=== PATIENT | female | born 1935 | race Two or more races ===

== ENCOUNTER 2019-04-02 19:12 | Inpatient (IN) | payer MEDICARE, MEDICAID ==
[~2019-04-02] VITALS: Ht 157.5 cm; Wt 77.9 kg
[2019-04-02] MEDS ORDERED: CLON0.1T22 PO (19:43)
[2019-04-02] MEDS ORDERED: HYDR25TA6 PO (19:43)
[2019-04-02] MEDS ORDERED: ATOR-2 PO (19:43)
[2019-04-02] MEDS ORDERED: OXYB5TAB10 PO (19:43)
[2019-04-02] MEDS ORDERED: LISI-167 PO (19:43)
--- NOTE | 2019-04-02 19:43 | NUR ---
PT TOE D FOR CONFUSION AND WEAKNESS STARTING AT 1600 TODAY PER FAMILY. PT WAS UNABLE TO WALK AFTER USING RR. PER FAMILY, PTS BP WAS HIGH, 169/115. PT CONNECTED TO MONITORS. VSS. DR. SCHMIDT TO BS FOR ASSESSMENT. AWAITING ORDERS.
--- NOTE | 2019-04-02 19:59 | NUR ---
pt refusing straight cath. Dr. Rodriguez notified. per Dr. Rodriguez, collect bedpan sample.
[2019-04-02 20:09] LABS: BASOPHILS % (AUTO) 0 % (0-1); EOSINOPHILS # (AUTO) 0.09 x10^3/uL (0-0.4); EOSINOPHILS % (AUTO) 1 % (1-7); LYMPHOCYTES # (AUTO) 1.05 x10^3/uL (1-3.4); LYMPHOCYTES % (AUTO) 6 % (22-44); MD NO; MEAN CORPUSCULAR HGB CONC 33.3 g/dL (32.4-35.8); MEAN CORPUSCULAR VOLUME 87.1 fL (80-100); MEAN PLATELET VOLUME 7.9 fL (7.4-10.4); MONOCYTES % (AUTO) 3 % (2-9); NEUTROPHILS # (AUTO) 15.93 x10^3/uL (1.8-6.8); NEUTROPHILS % (AUTO) 91 % (42-75); PLATELET COUNT 325 x10^3/uL (130-400); RED BLOOD COUNT 5.28 x10^6/uL (3.82-5.3); RED CELL DISTRIBUTION WIDTH 14.2 % (9.6-15.2)
[2019-04-02 20:15] LABS: ALANINE AMINOTRANSFERASE 22 U/L (12-78); ALBUMIN 3.7 g/dL (3.4-5.0); ANION GAP 10 mmol/L (5-15); CALCIUM 9.4 mg/dL (8.5-10.1); CHLORIDE 93 mmol/L (98-107); CREATININE 0.84 mg/dL (0.55-1.02)
[2019-04-02 20:20] LABS: ALKALINE PHOSPHATASE 107 U/L (45-117); BILIRUBIN,TOTAL 0.8 mg/dL (0.2-1.0); TOTAL PROTEIN 7.8 g/dL (6.4-8.2); TROPONIN I < 0.015 ng/mL (0.000-0.045)
--- NOTE | 2019-04-02 20:48 | NUR ---
PT RESTING IN ROOM WITH FAMILY AT BS. VSS. PT UNABLE TO URINATE ON BEDPAN AT THIS TIME. NO NEEDS EXPRESSED. CALL LIGHT WITHIN REACH. AWAITING CT.
--- NOTE | 2019-04-02 21:12 | NUR ---
ALL RESULTS BACK AT THIS TIME. CHART UP FOR RECHECK.
--- NOTE | 2019-04-02 21:39 | NUR ---
PT RESTING IN ROOM WITH FAMILY AT BS. VSS. NO NEEDS EXPRESSED. CALL LIGHT WITHIN REACH. ADMIT ORDERS RECEIVED. AWAITING ROOM ASSIGNMENT.
[2019-04-02] MEDS: ATORVASTATIN 10 MG TABLET PO SCH (22:00)
[2019-04-02] MEDS ORDERED: MAGNESIUM SULFATE PMX 2GM/50ML 50 ML IV ONE (22:00)
[2019-04-02] MEDS ORDERED: CEFTRIAXONE PMX 1GM/50ML 50 ML IV SCH (22:00)
[2019-04-02] MEDS ORDERED: SODIUM CHLORIDE 0.9% 1,000ML IVBOLUS ONE (22:00)
--- NOTE | 2019-04-02 22:10 | NUR ---
report to felice mosley. pt ready for transport.
[2019-04-02] MEDS ORDERED: ONDANSETRON ODT 4 MG PO PRN (22:30)
[2019-04-02] MEDS ORDERED: POLYETHYLENE GLYCOL 17 GM PACKET PO PRN (22:30)
[2019-04-02] MEDS ORDERED: BISACODYL 10 MG SUPP PR PRN (22:30)
[2019-04-02 23:20] LABS: MICROSCOPIC NOT IND
[2019-04-02 23:30] LABS: CULTURE INDICATED? NO
[2019-04-02 23:30] LABS: HEMOGLOBIN A1C 6.9 % (4.2-6.3)
[2019-04-02] MEDS: HEPARIN 5,000 UNITS/ML, 1ML SQ SCH (23:33)
[2019-04-02] MEDS: LISINOPRIL 20 MG TABLET PO SCH (23:33)
[2019-04-03] MEDS: NS + 20MEQ KCL 1,000 ML IV SCH ×2 (00:33→14:44)
[2019-04-03] MEDS: CEFTRIAXONE PMX 1GM/50ML 50 ML IV SCH (00:33)
[2019-04-03 02:24] VITALS: BP 124/78
[2019-04-03 06:23] LABS: BASOPHILS # (AUTO) 0.08 x10^3/uL (0-0.1); BASOPHILS % (AUTO) 1 % (0-1); EOSINOPHILS % (AUTO) 1 % (1-7); LYMPHOCYTES # (AUTO) 2.48 x10^3/uL (1-3.4); LYMPHOCYTES % (AUTO) 20 % (22-44); MD NO; MEAN CORPUSCULAR HEMOGLOBIN 28.7 pg (27.0-34.8); MEAN CORPUSCULAR HGB CONC 33.7 g/dL (32.4-35.8); MEAN CORPUSCULAR VOLUME 85.3 fL (80-100); MEAN PLATELET VOLUME 8.4 fL (7.4-10.4); MONOCYTES # (AUTO) 0.93 x10^3/uL (0.2-0.8); MONOCYTES % (AUTO) 8 % (2-9); NEUTROPHILS # (AUTO) 8.87 x10^3/uL (1.8-6.8); NEUTROPHILS % (AUTO) 71 % (42-75); PLATELET COUNT 213 x10^3/uL (130-400); RED CELL DISTRIBUTION WIDTH 14.4 % (9.6-15.2)
[2019-04-03 06:33] LABS: ALBUMIN 3.1 g/dL (3.4-5.0); ANION GAP 8 mmol/L (5-15); CALCIUM 8.7 mg/dL (8.5-10.1); CHLORIDE 99 mmol/L (98-107); CREATININE 0.67 mg/dL (0.55-1.02)
[2019-04-03 06:37] LABS: ALANINE AMINOTRANSFERASE 18 U/L (12-78); ALKALINE PHOSPHATASE 92 U/L (45-117); BILIRUBIN,TOTAL 0.7 mg/dL (0.2-1.0); TOTAL PROTEIN 6.5 g/dL (6.4-8.2)
[2019-04-03 06:49] VITALS: BP 138/84
[2019-04-03] MEDS: HEPARIN 5,000 UNITS/ML, 1ML SQ SCH ×2 (10:02→16:52)
[2019-04-03] MEDS: OXYBUTYNIN CHLORIDE 5 MG TABLET PO SCH (10:03)
[2019-04-03] MEDS: SENNA/DOCUSATE TABLET PO SCH (10:03)
[2019-04-03] MEDS: HYDROCHLOROTHIAZIDE 25 MG TABLET PO SCH (10:03)
[2019-04-03] MEDS: POTASSIUM CHLORIDE 20 MEQ TAB.ER.PRT PO SCH (10:03)
[2019-04-03] MEDS: LISINOPRIL 20 MG TABLET PO SCH ×2 (10:03→20:00)
[2019-04-03 14:18] VITALS: BP 130/79
[2019-04-03 19:37] VITALS: BP 165/89
[2019-04-03] MEDS: ATORVASTATIN 10 MG TABLET PO SCH (19:59)
[2019-04-04] MEDS: HEPARIN 5,000 UNITS/ML, 1ML SQ SCH ×3 (00:08→16:59)
[2019-04-04] MEDS: CEFTRIAXONE PMX 1GM/50ML 50 ML IV SCH (00:08)
[2019-04-04] MEDS: ACETAMINOPHEN 325 MG TABLET PO PRN ×2 (01:04→08:03)
[2019-04-04 01:17] VITALS: BP 146/84
[2019-04-04] MEDS: POTASSIUM CHLORIDE 20 MEQ TAB.ER.PRT PO SCH (08:04)
[2019-04-04] MEDS: HYDROCHLOROTHIAZIDE 25 MG TABLET PO SCH (08:04)
[2019-04-04] MEDS: LISINOPRIL 20 MG TABLET PO SCH ×2 (08:05→20:29)
[2019-04-04] MEDS: SENNA/DOCUSATE TABLET PO SCH (08:06)
[2019-04-04] MEDS: OXYBUTYNIN CHLORIDE 5 MG TABLET PO SCH (08:14)
[2019-04-04 10:52] VITALS: BP 128/67
[2019-04-04 15:48] VITALS: BP 137/80
[2019-04-04 19:48] VITALS: BP 162/86
[2019-04-04] MEDS: ATORVASTATIN 10 MG TABLET PO SCH (20:29)
[2019-04-05] MEDS: CEFTRIAXONE PMX 1GM/50ML 50 ML IV SCH (00:16)
[2019-04-05] MEDS: HEPARIN 5,000 UNITS/ML, 1ML SQ SCH ×2 (00:17→08:16)
[2019-04-05 02:12] VITALS: BP 141/84
[2019-04-05 07:14] LABS: BASOPHILS # (AUTO) 0.03 x10^3/uL (0-0.1); BASOPHILS % (AUTO) 0 % (0-1); EOSINOPHILS # (AUTO) 0.07 x10^3/uL (0-0.4); EOSINOPHILS % (AUTO) 1 % (1-7); LYMPHOCYTES # (AUTO) 2.25 x10^3/uL (1-3.4); LYMPHOCYTES % (AUTO) 19 % (22-44); MD NO; MEAN CORPUSCULAR HEMOGLOBIN 28.8 pg (27.0-34.8); MEAN CORPUSCULAR HGB CONC 33.9 g/dL (32.4-35.8); MEAN PLATELET VOLUME 7.7 fL (7.4-10.4); MONOCYTES # (AUTO) 0.85 x10^3/uL (0.2-0.8); MONOCYTES % (AUTO) 7 % (2-9); NEUTROPHILS # (AUTO) 8.48 x10^3/uL (1.8-6.8); NEUTROPHILS % (AUTO) 73 % (42-75); PLATELET COUNT 302 x10^3/uL (130-400); RED BLOOD COUNT 5.05 x10^6/uL (3.82-5.3); RED CELL DISTRIBUTION WIDTH 14.6 % (9.6-15.2)
[2019-04-05 07:15] LABS: ANION GAP 5 mmol/L (5-15); CALCIUM 8.7 mg/dL (8.5-10.1); CHLORIDE 100 mmol/L (98-107); CREATININE 0.73 mg/dL (0.55-1.02)
[2019-04-05 08:03] VITALS: BP 145/85
[2019-04-05] MEDS: POTASSIUM CHLORIDE 20 MEQ TAB.ER.PRT PO SCH (08:15)
[2019-04-05] MEDS: LISINOPRIL 20 MG TABLET PO SCH (08:15)
[2019-04-05] MEDS: SENNA/DOCUSATE TABLET PO SCH (08:16)
[2019-04-05] MEDS: HYDROCHLOROTHIAZIDE 25 MG TABLET PO SCH (08:16)
[2019-04-05] MEDS: OXYBUTYNIN CHLORIDE 5 MG TABLET PO SCH (08:16)
[2019-04-05] MEDS: ACETAMINOPHEN 325 MG TABLET PO PRN (11:29)
[2019-04-05 13:13] VITALS: BP 115/77
[2019-04-05] MEDS ORDERED: POLY17PO5 PO (13:58)
[2019-04-05] MEDS ORDERED: CEFD300C37 PO (13:58)
[2019-04-05] MEDS ORDERED: LACT1TAB13 PO (13:58)
== END 2019-04-05 17:04 | disposition home or self-care (01) | DRG 871 ==
LOC: ED 21:45 → UNDOADMIN 21:54 → EDIP 21:54 → 3N 22:53 → DCLOUNGE 04-05 17:04
PROVIDERS: ADMIT Internal Medicine; ATTEND Internal Medicine
DX: A41.9 Sepsis, unspecified organism (principal); G93.41 Metabolic encephalopathy; E87.1 Hypo-osmolality and hyponatremia; N39.0 Urinary tract infection, site not specified; E11.65 Type 2 diabetes mellitus with hyperglycemia; E78.00 Pure hypercholesterolemia, unspecified; E78.5 Hyperlipidemia, unspecified; E83.42 Hypomagnesemia; E87.6 Hypokalemia; I10 Essential (primary) hypertension; I25.10 Atherosclerotic heart disease of native coronary artery without angina pectoris; I25.2 Old myocardial infarction; R32 Unspecified urinary incontinence; Z86.73 Personal history of transient ischemic attack (TIA), and cerebral infarction without residual deficits; Z87.891 Personal history of nicotine dependence
CPT/HCPCS: 36415; 70450; 71045; 80048; 80053; 81003; 83036; 83605; 83735; 84484; 85025; 87040; 93005; 99285; G0378; J0696; J1644; J3480; J3475; J7030

== ENCOUNTER 2020-01-10 17:33 | Emergency (ER) | payer MEDICARE, MEDICAID ==
[~2020-01-10] VITALS: Ht 165.1 cm; Wt 60.5 kg
[~2020-01-10 17:33] MED LIST: ATOR-2 PO; CARV12.52 PO; CEFD300C37 PO; CLON0.1T22 PO; FERR210T PO; HYDR25TA6 PO; LACT1TAB13 PO; LISI-167 PO; OMEP-110 PO; OXYB5TAB10 PO; POLY17PO5 PO
--- NOTE | 2020-01-10 17:56 | NUR ---
FIRST CONTACT WITH PT. "[facility] WENT TO [facility] BECAUSE SHES HAVING LOWER BACK PAIN AND SHE TENDS TO HAVE UTI'S. SHE WAS HERE 5 WEEKS AGO W/ BLOOD INFECTION FROM A UTI. AT [facility] THEY COULDN'T MAKE HER PEE SO THEY TOLD US TO BRING HER HERE". PT'S AOX4. RESPS EVEN AND UNLABORED. SAO TOMEAN SPEAKING.
--- NOTE | 2020-01-10 18:21 | NUR ---
PT WHEELED TO WITH PT'S SON. URINE CUP GIVEN, BUT PT WAS NOT ABLE TO PROVIDE URINE SAMPLE AT THIS TIME.
--- NOTE | 2020-01-10 18:55 | NUR ---
REPORT GIVEN TO SHREYA MUNIZ.
--- NOTE | 2020-01-10 19:05 | NUR ---
REPORT FROM CHINEDU MUNIZ. MINI CATH PLACED AND URINE SAMPLE OBTAINED. PT TOLERATED WELL. UA WALKED TO LAB. SON AT BEDSIDE. CALL LIGHT IN REACH
[2020-01-10 19:22] LABS: MICROSCOPIC INDICATED
[2020-01-10 19:36] VITALS: BP 149/62
--- NOTE | 2020-01-10 19:58 | NUR ---
Caregiver given discharge instructions and they have confirmed that they understand the instructions. Patient ambulatory with steady gait.
== END 2020-01-10 20:03 | disposition home or self-care (01) ==
LOC: ED 18:18
DX: N30.00 Acute cystitis without hematuria (principal); I10 Essential (primary) hypertension; I25.2 Old myocardial infarction; Z86.73 Personal history of transient ischemic attack (TIA), and cerebral infarction without residual deficits
CPT/HCPCS: 81001; 87077; 87086; 87186; 99283

== ENCOUNTER 2021-01-15 00:38 | Inpatient (IN) | payer MEDICARE, MEDICAID ==
[~2021-01-15] VITALS: Ht 157.5 cm; Wt 83.1 kg
--- NOTE | 2021-01-15 00:44 | NUR ---
PT BIB EMS FOR [facility]. PT CO LEFT HIP PAIN. LEG APPEARS TO SHORTENED. PULSES INTACT. PT LIBERIAN SPEAKING ONLY. 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 PT RESTING IN [place]. FAMILY ON THE WAY. BLANKETS PROVIDED
[2021-01-15] MEDS ORDERED: ONDANSETRON 2MG/ML, 2ML ONE ×2 (01:23→12:03)
[2021-01-15] MEDS ORDERED: MORPHINE SULFATE 4 MG/ML, 1ML ONE (01:24)
[2021-01-15] MEDS ORDERED: MORPHINE SULFATE 4 MG/ML, 1ML IVPush PRN (01:30)
[2021-01-15] MEDS ORDERED: ONDANSETRON 2MG/ML, 2ML IVPush ONE (01:30)
--- NOTE | 2021-01-15 01:44 | NUR ---
EDDIE ZULETA [phone]
[2021-01-15 01:51] LABS: BASOPHILS % (AUTO) 1 % (0-1); EOSINOPHILS % (AUTO) 0 % (1-7); LYMPHOCYTES % (AUTO) 13 % (22-44); MEAN CORPUSCULAR HEMOGLOBIN 25.7 pg (27.0-34.8); MEAN CORPUSCULAR HGB CONC 33.2 g/dL (32.4-35.8); MEAN PLATELET VOLUME 7.7 fL (7.4-10.4); MONOCYTES % (AUTO) 7 % (2-9); NEUTROPHILS % (AUTO) 79 % (42-75); PLATELET COUNT 290 x10^3/uL (130-400); RED BLOOD COUNT 4.73 x10^6/uL (3.82-5.3); RED CELL DISTRIBUTION WIDTH 15.9 % (9.6-15.2)
[2021-01-15 02:01] LABS: ALBUMIN 2.8 g/dL (3.4-5.0); ANION GAP 8 mmol/L (5-15); CALCIUM 9.1 mg/dL (8.5-10.1); CHLORIDE 100 mmol/L (98-107); CREATININE 0.89 mg/dL (0.55-1.02)
[2021-01-15 03:30] VITALS: BP 139/82
[2021-01-15] MEDS ORDERED: POLYETHYLENE GLYCOL 17 GM PACKET PO PRN (04:30)
[2021-01-15] MEDS ORDERED: LABETALOL 5MG/ML, 20ML IVPush PRN (04:30)
[2021-01-15] MEDS: KETOROLAC 30 MG/1 ML IV PRN ×2 (04:44→20:36)
[2021-01-15] MEDS: morphine SULFATE 10 MG/ML, 1ML IVPush PRN ×2 (04:45→23:14)
[2021-01-15] MEDS ORDERED: CHLORHEXIDINE 15 ML UDC ONE (08:51)
[2021-01-15 10:30] VITALS: BP 124/75
[2021-01-15] MEDS ORDERED: MEPERIDINE/PF 25MG/0.5ML IVPush PRN (10:30)
[2021-01-15] MEDS ORDERED: HYDROmorphone 1 MG/ML, 1ML INJ IVPush PRN (10:30)
[2021-01-15] MEDS ORDERED: ACETAMINOPHEN 325 MG TABLET PO PRN (10:30)
[2021-01-15] MEDS ORDERED: ONDANSETRON 2MG/ML, 2ML IVPush PRN (10:30)
[2021-01-15] MEDS ORDERED: HYDROcodone/APAP 7.5-325MG/15ML UDC PO PRN (10:30)
[2021-01-15] MEDS ORDERED: OXYcodone 5 MG/5 ML ORAL.SOL UDC PO PRN (10:30)
[2021-01-15] MEDS ORDERED: FENTANYL PF 100 MCG/2ML ONE ×2 (11:40→13:40)
[2021-01-15] MEDS ORDERED: NEOSTIGMINE 1 MG/ML, 10ML ONE (12:03)
[2021-01-15] MEDS ORDERED: SUCCINYLCHOLINE 20 MG/ML, 10ML ONE (12:03)
[2021-01-15] MEDS ORDERED: PROPOFOL 10 MG/ML, 20ML ONE (12:03)
[2021-01-15] MEDS ORDERED: GLYCOPYRROLATE 0.2MG/1ML, 5ML ONE (12:03)
[2021-01-15] MEDS ORDERED: ROCURONIUM 10 MG/ML,10ML ONE (12:03)
[2021-01-15] MEDS ORDERED: CEFAZOLIN 1,000 MG ONE (12:03)
[2021-01-15] MEDS ORDERED: DEXAMETHASONE 4 MG/ML, 1ML ONE (12:03)
[2021-01-15] MEDS ORDERED: PHENYLEPHRINE 10 MG/ML ONE (12:03)
[2021-01-15] MEDS: FENTANYL PF 100 MCG/2ML IV PRN ×2 (13:42→14:28)
[2021-01-15] MEDS: ONDANSETRON 2MG/ML, 2ML IVPush PRN (15:59)
[2021-01-15] MEDS ORDERED: SODIUM CHLORIDE 0.9% 1,000ML IVBOLUS ONE ×2 (16:30→20:30)
[2021-01-15 18:57] VITALS: BP 100/67
[2021-01-15 19:47] VITALS: BP 74/49
[2021-01-15] MEDS: MELATONIN 5 MG TABLET PO PRN (22:58)
[2021-01-15 23:11] VITALS: BP 97/62
[2021-01-16 00:26] VITALS: BP 85/57
[2021-01-16] MEDS: SODIUM CHLORIDE 0.9% 1,000 ML IV SCH ×4 (01:00→22:43)
[2021-01-16 01:24] LABS: BASOPHILS % (AUTO) 0 % (0-1); EOSINOPHILS % (AUTO) 0 % (1-7); LYMPHOCYTES % (AUTO) 6 % (22-44); MEAN CORPUSCULAR HEMOGLOBIN 25.7 pg (27.0-34.8); MEAN CORPUSCULAR HGB CONC 32.7 g/dL (32.4-35.8); MEAN PLATELET VOLUME 7.8 fL (7.4-10.4); MONOCYTES % (AUTO) 7 % (2-9); NEUTROPHILS % (AUTO) 86 % (42-75); PLATELET COUNT 240 x10^3/uL (130-400); RED BLOOD COUNT 3.14 x10^6/uL (3.82-5.3); RED CELL DISTRIBUTION WIDTH 15.5 % (9.6-15.2)
[2021-01-16 01:34] LABS: ANION GAP 8 mmol/L (5-15); CALCIUM 7.8 mg/dL (8.5-10.1); CHLORIDE 105 mmol/L (98-107); CREATININE 1.48 mg/dL (0.55-1.02)
[2021-01-16 01:53] LABS: TROPONIN I < 0.015 ng/mL (0.000-0.045)
[2021-01-16] MEDS ORDERED: ENOXAPARIN 40 MG/0.4 ML SQ SCH (09:00)
[2021-01-16 09:15] VITALS: BP 100/64
[2021-01-16] MEDS: morphine SULFATE 10 MG/ML, 1ML IVPush PRN ×2 (11:29→22:42)
[2021-01-16] MEDS: KETOROLAC 30 MG/1 ML IV PRN ×2 (15:08→21:53)
[2021-01-16] MEDS: ONDANSETRON 2MG/ML, 2ML IVPush PRN ×2 (15:08→21:27)
[2021-01-16 15:21] VITALS: BP 122/74
[2021-01-16 20:26] VITALS: BP 114/71
[2021-01-16] MEDS ORDERED: ATORVASTATIN 80 MG TABLET PO SCH (21:00)
[2021-01-16] MEDS: ATORVASTATIN 10 MG TABLET PO SCH (21:19)
[2021-01-17] VITALS (11 sets, daily range): BP systolic 106–139; BP diastolic 55–83
[2021-01-17] MEDS: KETOROLAC 30 MG/1 ML IV PRN ×2 (04:57→11:02)
[2021-01-17] MEDS: SODIUM CHLORIDE 0.9% 1,000 ML IV SCH ×3 (05:51→22:45)
[2021-01-17 06:08] LABS: BASOPHILS % (AUTO) 0 % (0-1); EOSINOPHILS % (AUTO) 0 % (1-7); LYMPHOCYTES % (AUTO) 15 % (22-44); MEAN CORPUSCULAR HEMOGLOBIN 26.7 pg (27.0-34.8); MEAN CORPUSCULAR HGB CONC 33.8 g/dL (32.4-35.8); MEAN PLATELET VOLUME 7.8 fL (7.4-10.4); MONOCYTES % (AUTO) 12 % (2-9); NEUTROPHILS % (AUTO) 73 % (42-75); PLATELET COUNT 203 x10^3/uL (130-400); RED BLOOD COUNT 2.34 x10^6/uL (3.82-5.3); RED CELL DISTRIBUTION WIDTH 15.5 % (9.6-15.2)
[2021-01-17 06:15] LABS: CALCIUM 7.6 mg/dL (8.5-10.1); CHLORIDE 112 mmol/L (98-107)
[2021-01-17 06:18] LABS: ANION GAP 6 mmol/L (5-15); CREATININE 1.16 mg/dL (0.55-1.02)
[2021-01-17] MEDS: ONDANSETRON 2MG/ML, 2ML IVPush PRN (10:15)
[2021-01-17] MEDS: morphine SULFATE 10 MG/ML, 1ML IVPush PRN (10:30)
[2021-01-17] MEDS: ENOXAPARIN 30 MG/0.3 ML SQ SCH (11:03)
[2021-01-17] MEDS ORDERED: OMEPRAZOLE 20 MG CAPSULE.DR ONE (11:47)
[2021-01-17] MEDS: OMEPRAZOLE 20 MG CAPSULE.DR PO SCH (11:48)
[2021-01-17] MEDS: CARVEDILOL 12.5 MG TABLET PO SCH (17:29)
[2021-01-17] MEDS: MELATONIN 5 MG TABLET PO PRN (20:45)
[2021-01-18 01:49] VITALS: BP 106/68
[2021-01-18 05:20] LABS: BASOPHILS % (AUTO) 1 % (0-1); EOSINOPHILS % (AUTO) 1 % (1-7); LYMPHOCYTES % (AUTO) 17 % (22-44); MEAN CORPUSCULAR HEMOGLOBIN 28.7 pg (27.0-34.8); MEAN CORPUSCULAR HGB CONC 34.5 g/dL (32.4-35.8); MEAN PLATELET VOLUME 8.3 fL (7.4-10.4); MONOCYTES % (AUTO) 10 % (2-9); NEUTROPHILS % (AUTO) 71 % (42-75); PLATELET COUNT 133 x10^3/uL (130-400); RED BLOOD COUNT 3.07 x10^6/uL (3.82-5.3); RED CELL DISTRIBUTION WIDTH 16.5 % (9.6-15.2)
[2021-01-18 05:31] LABS: ALBUMIN 1.7 g/dL (3.4-5.0); ANION GAP 5 mmol/L (5-15); CALCIUM 7.4 mg/dL (8.5-10.1); CHLORIDE 114 mmol/L (98-107)
[2021-01-18 05:35] LABS: ALANINE AMINOTRANSFERASE 12 U/L (12-78); ALKALINE PHOSPHATASE 68 U/L (45-117); BILIRUBIN,TOTAL 0.8 mg/dL (0.2-1.0); CREATININE 0.86 mg/dL (0.55-1.02); TOTAL PROTEIN 4.8 g/dL (6.4-8.2)
[2021-01-18] MEDS: OMEPRAZOLE 20 MG CAPSULE.DR PO SCH ×2 (05:59→17:08)
[2021-01-18] MEDS: SODIUM CHLORIDE 0.9% 1,000 ML IV SCH (05:59)
[2021-01-18] MEDS: CARVEDILOL 12.5 MG TABLET PO SCH (05:59)
[2021-01-18 06:00] VITALS: BP 121/73
[2021-01-18 07:47] VITALS: BP 103/66
[2021-01-18] MEDS: ENOXAPARIN 30 MG/0.3 ML SQ SCH (11:01)
[2021-01-18] MEDS ORDERED: TRAM-47 PO (13:07)
[2021-01-18] MEDS ORDERED: ACET-1600 PO (13:07)
[2021-01-18] MEDS ORDERED: CARV6.2512 PO (13:07)
[2021-01-18] MEDS ORDERED: ENOX30DI3 SQ (13:20)
[2021-01-18 13:55] VITALS: BP 111/68
[2021-01-18] MEDS: CARVEDILOL 6.25 MG TABLET PO SCH (17:08)
[2021-01-18 18:50] VITALS: BP 139/81
[2021-01-18] MEDS: KETOROLAC 30 MG/1 ML IV PRN (20:28)
[2021-01-18] MEDS: MELATONIN 5 MG TABLET PO PRN (20:28)
[2021-01-18] MEDS: ATORVASTATIN 10 MG TABLET PO SCH (20:28)
[2021-01-19 01:08] VITALS: BP 133/71
[2021-01-19] MEDS: OMEPRAZOLE 20 MG CAPSULE.DR PO SCH (05:24)
[2021-01-19] MEDS: CARVEDILOL 6.25 MG TABLET PO SCH (05:24)
[2021-01-19 07:59] VITALS: BP 145/83
[2021-01-19] MEDS: KETOROLAC 30 MG/1 ML IV PRN (10:00)
[2021-01-19] MEDS: ENOXAPARIN 30 MG/0.3 ML SQ SCH (11:30)
[2021-01-19 13:30] VITALS: BP 138/88
== END 2021-01-19 14:06 | DRG 481 ==
LOC: ED 02:44 → EDIP 03:36 → 4NE 03:37
PROVIDERS: ADMIT Internal Medicine; ATTEND Internal Medicine
PROC: 0QS706Z Reposition Left Upper Femur with Intramedullary Internal Fixation Device, Open Approach (ICD-10-PCS; principal; 2021-01-15 12:00)
PROC: 30233N1 Transfusion of Nonautologous Red Blood Cells into Peripheral Vein, Percutaneous Approach (ICD-10-PCS; 2021-01-17)
DX: S72.142A Displaced intertrochanteric fracture of left femur, initial encounter for closed fracture (principal); D62 Acute posthemorrhagic anemia; I45.2 Bifascicular block; I10 Essential (primary) hypertension; Z20.822 Contact with and (suspected) exposure to COVID-19; I25.10 Atherosclerotic heart disease of native coronary artery without angina pectoris; E78.5 Hyperlipidemia, unspecified; W01.0XXA Fall on same level from slipping, tripping and stumbling without subsequent striking against object, initial encounter; Y93.89 Activity, other specified; Y92.89 Other specified places as the place of occurrence of the external cause; Y99.8 Other external cause status; Z87.19 Personal history of other diseases of the digestive system; I25.2 Old myocardial infarction; Z90.49 Acquired absence of other specified parts of digestive tract; Z79.899 Other long term (current) drug therapy
CPT/HCPCS: 36415; 76000; 80048; 80053; 82040; 83735; 84100; 84484; 85014; 85018; 85025; 86850; 86900; 86923; 87635; 93005; 96374; 96375; 99291; C1713; G0378; J0690; J1100; J1650; J1885; J2405; J2704; J2710; J3010; J0330; J2270; J2370; J7030; P9016